=== PATIENT | female | born 1970 | race Caucasian/White ===

== ENCOUNTER 2025-02-02 03:37 | Emergency (ER) | payer OTHER, SELFPAY ==
--- NOTE | ~2025-02-02 | CT_ITS ---
CLINICAL HISTORY: Lower abdominal pain? Appy CT abdomen and pelvis with contrast Comparison: None Findings: The lung bases are clear. The gallbladder is absent. There is mild likely postsurgical prominence of the intrahepatic and extrahepatic bile ducts. No suspicious hepatic lesion. The liver, adrenal glands and pancreas are unremarkable. Kidneys demonstrates several low-density lesions, those large enough to characterize are simple cysts, the exception of a ill-defined region of low-density containing calcification within the left midpole, measuring up to 17 mm. Ureters are normal in course and in caliber. The bladder is unremarkable. Normal appendix, reference axial image 50. No bowel obstruction, free air, free fluid, abscess or adenopathy. No pneumatosis. Reference axial image 47 and sagittal image 85, there is questionable focal thickening involving the proximal ascending colon. Moderate to severe atherosclerotic disease. No acute osseous finding. Impression: Normal appendix. Questionable focal thickening involving the proximal ascending colon. Outpatient GI consultation recommended for further evaluation and possible colonoscopy. This document has been electronically signed by: Cristino Worthy MD on 02/02/2025 06:43:21
[2025-02-02 03:56] LABS: MANUAL DIFF FLAG NO
[2025-02-02 03:57] LABS: Basophils Percent Auto 0.2 % (0-2); Hematocrit 43.7 % (37.0-47.0); Hemoglobin 15.4 g/dl (12.0-16.0); Imm Gran Abs Auto 0.06 X10*3/uL (0.00-0.03); Imm Gran Pct Auto 0.3 % (0.0-0.4); Lymphocytes Absolute Auto 1.4 X10*3/uL (1.2-4.9); Lymphocytes Percent Auto 7.9 % (20-40); Mean Corpuscular HGB Conc 35.2 g/dl (31.0-35.0); Mean Corpuscular Hemoglobin 28.7 pg (27.0-33.0); Mean Corpuscular Volume 81.4 fL (80.0-98.0); Mean Platelet Volume 9.8 fL (9.4-12.3); Monocytes Absolute Auto 0.4 X10*3/uL (0.1-1.2); Monocytes Percent Auto 2.1 % (2-11); Neutrophils Absolute Auto 16.3 x10*3/uL (2.0-8.3); Neutrophils Percent Auto 89.5 % (45-73); Platelet Count 314 X10*3/uL (160-400); Red Blood Count 5.37 X10*6/uL (4.20-5.50); White Blood Count 18.2 X10*3/uL (4.8-10.8)
[2025-02-02 03:58] VITALS: BP 222/112; PULSE 116; O2SAT 98
[2025-02-02 03:59] VITALS: BP 168/95; BP 221/112; PULSE 116; PULSE 122; RESP 22; TEMP 37.3; O2SAT 97; BMI 25.8
--- NOTE | 2025-02-02 04:06 | ED_ITS ---
HPI - Nausea/Vomiting/Diarrhea General Chief complaint: Nausea/Vomiting/Diarrhea Stated complaint: Vomiting & severe abdominal pain Time Seen by Provider: 02/02/25 04:06 Source: patient Mode of arrival: EMS Limitations: no limitations History of Present Illness ED Provider: HPI Narrative: Patient apparently had food yesterday morning at [facility] since then patient has been vomiting with diffuse abdominal pain unable to tolerate any liquids no other family member sick Related Data Previous Rx's ?Medication ?Instructions ?Recorded dicyclomine 20 mg tablet 20 mg PO QID PRN abdominal pain 02/02/25 #20 tabs ondansetron 4 mg disintegrating 4 mg PO Q6-8H PRN nausea and 02/02/25 tablet vomiting #7 tabs Allergies Allergy/AdvReac Type Severity Reaction Status Date / Time No Known Allergies Allergy Verified 02/02/25 04:02 Review of Systems 2 Review of Systems: Yes all other systems are reviewed and are negative PMFSH Social History Social History Advance Directives: No Advance Directives Information Provided: No Do you have a plan to hurt others: No Plan Physical Exam 2 Vital Signs: Vital Signs: Last Vital Signs Temp 97.8 F 02/02/25 07:40 Pulse 97 02/02/25 07:40 Resp 18 02/02/25 07:40 BP 136/77 02/02/25 07:40 Pulse Ox 97 02/02/25 07:40 O2 Del Method Room Air 02/02/25 07:40 BMI result Body Mass Index 25.8 Medications Administered Discontinued Medications Generic Name Dose Route Start Last Admin Trade Name Freq PRN Reason Stop Dose Admin Sodium Chloride 1,000 mls @ 999 mls/hr 02/02/25 04:07 02/02/25 07:57 Ns IV 02/02/25 05:07 Infused .Q1H1M ONE Infusion Iohexol 85 ml 02/02/25 05:50 02/02/25 05:53 Iohexol 350 Mg/Ml 100 Ml Infus..Btl IV 02/02/25 05:51 85 ml ONCE ONE Administration Morphine Sulfate 4 mg 02/02/25 04:07 02/02/25 04:16 Morphine Sulfate 4 Mg/Ml Cartridge IVPUSH 02/02/25 04:08 4 mg ONCE ONE Administration Protocol Ondansetron HCl 4 mg 02/02/25 04:07 02/02/25 04:16 Ondansetron Hcl 4 Mg/2 Ml Vial IVPUSH 02/02/25 04:08 4 mg ONCE ONE Administration Medical Decision Making Medical Decision Making [facility] Narrative: Patient with diffuse abdominal pain with vomiting after eating food outside workup showed leukocytosis with CT scan of the abdomen is negative for acute will discharge patient home advised p.o. nausea medicine 826 a.m.I, Dr. Gipson have take over the care of this patient, I reviewed pertinent blood work and imaging, re-evaluated the patient when appropriate. Patient re-evaluated, she feels better, I discussed CT findings with her specifically she will need to have follow up with the PCP to determine whether she needs further colonoscopy, the rest of the blood work and urinalysis has been reassuring. She was signed out to me pending urinalysis and then anticipating discharge. Her blood work was consistent with possibly gastroenteritis or nausea or vomiting, and urine did reveal evidence for dehydration with increased specific gravity. Differential Diagnosis Differential Diagnoses: The differential diagnosis associated with the presentation includes Gastroenteritis/volume loss/appendicitis/UTI/food poison Lab Data [facility] Lab Attestation statement: I reviewed the patient's lab results. 02/02/25 03:48 02/02/25 03:48 Labs: Lab Results 02/02/25 02/02/25 Range/Units 03:48 07:54 WBC 18.2 H (4.8-10.8) X10*3/uL RBC 5.37 (4.20-5.50) X10*6/uL Hgb 15.4 (12.0-16.0) g/dl Hct 43.7 (37.0-47.0) % MCV 81.4 (80.0-98.0) fL MCH 28.7 (27.0-33.0) pg MCHC 35.2 H (31.0-35.0) g/dl RDW 13.0 (11.0-16.0) % Plt Count 314 (160-400) X10*3/uL MPV 9.8 (9.4-12.3) fL Immature Gran % (Auto) 0.3 (0.0-0.4) % Neut % (Auto) 89.5 H (45-73) % Lymph % (Auto) 7.9 L (20-40) % [place] % (Auto) 2.1 (2-11) % Eos % (Auto) 0.0 (0-4) % Baso % (Auto) 0.2 (0-2) % Lymph # (Auto) 1.4 (1.2-4.9) X10*3/uL [place] # (Auto) 0.4 (0.1-1.2) X10*3/uL Eos # (Auto) 0.0 (0.0-0.4) X10*3/uL Baso # (Auto) 0.0 (0.0-0.2) X10*3/uL Abs Immat Gran (auto) 0.06 H (0.00-0.03) X10*3/uL Absolute Neuts (auto) 16.3 H (2.0-8.3) x10*3/uL Absolute Nucleated RBC 0.000 (0.0-0.012) X10*3/uL Nucleated RBC % (auto) 0.0 (0.0-0.2) /100WBC Sodium 144 (135-145) mmol/L Potassium 3.5 (3.3-5.1) mmol/L Chloride 108 (96-108) mmol/L Carbon Dioxide 21 L (22-29) mmol/L Anion Gap 19 (12-20) BUN 18 H (9-16) mg/dL Creatinine 0.94 (0.5-1.4) mg/dL Estim Creat Clear Calc 65.7 Estimated GFR > 60 Random Glucose 192 H (60-115) mg/dL Calcium 10.1 (8.4-10.2) mg/dL Magnesium 1.7 (1.6-2.6) mg/dL Total Bilirubin 1.4 H (0.0-1.0) mg/dL AST 32 H (5-31) U/L ALT 15 (0-31) U/L Alkaline Phosphatase 108 (39-117) U/L Total Protein 8.3 H (6.5-8.0) g/dL Albumin 5.1 H (3.5-5.0) g/dL Lipase 13 (8-78) U/L Urine Color Yellow Urine Appearance Clear Urine pH 5.5 (5.0-9.0) Ur Specific [place] >= 1.030 H (1.005-1.025) Urine Protein 30 (1+) H (Neg-Trace) mg/dL Urine Glucose (UA) Negative (Negative) mg/dL Urine Ketones 15 (Negative) mg/dL Urine Blood Small (1+) H (Negative) Urine Nitrite Negative (Negative) Ur Leukocyte Esterase Negative (Negative) Urine RBC 3-5 H (0-2) /HPF Urine WBC 0-5 (0-5) /HPF Ur Squamous Epith Cells 3-5 (0-2) /HPF Urine Bacteria 4+ (None Seen) Hyaline Casts 3-5 (0-2) /LPF Independent Interpretation I performed an independent interpretation of an: CT Scan Radiology Impression Discussion of test interpretation with radiology: I have reviewed the radiologist's reading. Radiologist Impression: Impression: Normal appendix. Questionable focal thickening involving the proximal ascending colon. Outpatient GI consultation recommended for further evaluation and possible colonoscopy. This document has been electronically signed by: Cristino Worthy MD on 02/02/2025 06:43:21 Discharge Plan Discharge Clinical Impression: Acute vomiting Patient Disposition: Home, Self-Care Instructions: Acute Nausea and Vomiting (DC) Additional Instructions: Drink plenty of fluids Medicine for nausea as prescribed Follow with your PCP , CAT scan showed some nonspecific findings, that is likely associated with the presentation possibly due to gastroenteritis however follow up with GI, colonoscopy, or repeat CAT scan may need to be necessary to make sure that the findings on your CAT scan of inflammation of the colon are resolving and not related to early evidence of colon cancer, this is something I would not worry about right now this is very nonspecific and likely related to your current presentation but this was found on CT and I have to communicate this to you to make sure you have outpatient follow-up. Prescriptions: New ondansetron 4 mg tablet,disintegrating 4 mg PO Q6-8H PRN (Reason: nausea and vomiting) Qty: 7 0RF dicyclomine 20 mg tablet 20 mg PO QID PRN (Reason: abdominal pain) Qty: 20 0RF Print Language: Estonian
[2025-02-02 04:12] LABS: Alanine Aminotransferase 15 U/L (0-31); Albumin Level 5.1 g/dL (3.5-5.0); Alkaline Phosphatase 108 U/L (39-117); Anion Gap 19 (12-20); Aspartate Amino Transferase 32 U/L (5-31); Bilirubin Total 1.4 mg/dL (0.0-1.0); Blood Urea Nitrogen 18 mg/dL (9-16); Calcium 10.1 mg/dL (8.4-10.2); Carbon Dioxide 21 mmol/L (22-29); Chloride 108 mmol/L (96-108); Creatinine Clr Calc Pharmacy 65.7; Estimated Glomerular Filt Rate > 60; Glucose Random 192 mg/dL (60-115); Lipase 13 U/L (8-78); Magnesium 1.7 mg/dL (1.6-2.6); Potassium 3.5 mmol/L (3.3-5.1); Sodium 144 mmol/L (135-145); Total Protein 8.3 g/dL (6.5-8.0)
[2025-02-02] MEDS: ondansetron HCL 4 MG/2 ML VIAL IVPUSH (04:16)
[2025-02-02] MEDS: Morphine Sulfate 4 MG/ML CARTRIDGE IVPUSH (04:16)
[2025-02-02] MEDS: 0.9 % Sodium Chloride 1,000 ML 999 ML IV (04:17)
[2025-02-02] MEDS: iohexoL 350 MG/ML 100 ML INFUS..BTL 85 ML IV (05:53)
[2025-02-02 07:40] VITALS: BP 136/77; PULSE 97; RESP 18; TEMP 36.6; O2SAT 97
--- NOTE | 2025-02-02 07:43 | PC.NURSE ---
Accepted care of pt at 7a, provider in to review CT results. Pt tolerating crackers and sips- No complaints, VSS. A&O X4.
[2025-02-02 08:01] LABS: Appearance Urine Clear; Color Urine Yellow; Glucose Urine UA Negative (Negative); Leukocyte Esterase Urine Negative (Negative); Nitrite Urine Negative (Negative); PH 5.5 (5.0-9.0); Specific Gravity - Urine >= 1.030 (1.005-1.025); UMIC TRIGGER UACC YES; Urine Blood Small (1+) (Negative); Urine Ketones 15 mg/dL (Negative); Urine Protein 30 (1+) mg/dL (Neg-Trace)
[2025-02-02 08:14] LABS: Bacteria Urine 4+ (None Seen); WBC Urine 0-5 /HPF (0-5)
[2025-02-02 08:41] VITALS: BP 136/77; PULSE 97; RESP 18; TEMP 36.6; O2SAT 97
== END 2025-02-02 08:41 | disposition home or self-care (01) ==
PROVIDERS: Emergency Provider Internal Medicine
DX: R11.2 Nausea with vomiting, unspecified (principal); R10.2 Pelvic and perineal pain; Z79.899 Other long term (current) drug therapy
CPT/HCPCS: 36415; 74177; 80053; 81001; 81003; 83690; 83735; 85025; 96361; 96374; 96375; 99284; J2270; J2405; Q9967

== ENCOUNTER → 2025-02-02 04:21 | Outpatient (BNV) | payer OTHER, SELFPAY | PROVIDERS: Emergency Provider Internal Medicine; Visit Provider Radiology Vascular & Interventional Radiology | DX: R10.30 Lower abdominal pain, unspecified (principal) | CPT/HCPCS: 74177 ==